=== PATIENT | male | born 1945 | race Caucasian/White ===

== ENCOUNTER 2019-05-10 06:41 | Day surgery (SDC) | payer MEDICARE, OTHER ==
[~2019-05-10] VITALS: Ht 172.7 cm; Wt 95.0 kg
[~2019-05-10 06:41] MED LIST: ALBU90OI6; ASPI81CH; BREO ELLIPTA 21 EACH; CLARITIN10 MG; DEXL60CA3; EPIN.3I; LORA10; TAMS.4ER
--- NOTE | 2019-05-10 07:51 | NUR ---
05/10/19 0751 Hayley Curiel 1 MISSED IV ANGELIA VALVE IN AND 1 MISSED IV BY KARLO VEIN BLEW RFA 1 GOOD IV BY KARLO IN AND PT TOW
== END 2019-05-10 08:39 | disposition home or self-care (01) ==
LOC: ORSCSDS 06:41
PROVIDERS: Internal Medicine Gastroenterology
PROC: 0DB58ZX Excision of Esophagus, Via Natural or Artificial Opening Endoscopic, Diagnostic (ICD-10-PCS; principal; 2019-05-10 08:00)
PROC: 0DB68ZX Excision of Stomach, Via Natural or Artificial Opening Endoscopic, Diagnostic (ICD-10-PCS; principal; 2019-05-10 08:00)
DX: K22.70 Barrett's esophagus without dysplasia (principal); K31.7 Polyp of stomach and duodenum; K29.70 Gastritis, unspecified, without bleeding; K20.8 Other esophagitis; E78.5 Hyperlipidemia, unspecified; K21.9 Gastro-esophageal reflux disease without esophagitis; J44.9 Chronic obstructive pulmonary disease, unspecified; E66.9 Obesity, unspecified; Z68.31 Body mass index [BMI] 31.0-31.9, adult; Z79.899 Other long term (current) drug therapy
CPT/HCPCS: 88305; 88342; J0461; J2250; J2405; J2704; J7120

== ENCOUNTER 2021-01-30 09:25 | Day surgery (SDC) | payer MEDICARE ==
[~2021-01-30] VITALS: Ht 172.7 cm; Wt 98.8 kg
[~2021-01-30 09:25] MED LIST changes: +ALBU90OI INH; +Allergy Relief10 M1 PO; +BREO ELLIPTA 21 EAC1 INH; +DEXL60CA3 PO; +EPIPEN0.3 MG/0.1 IM; +MONT10T PO; +TAMS.4ER PO
[2021-01-30] MEDS ORDERED: LORA1SY (10:17)
[2021-01-30] MEDS ORDERED: ATOR20 (10:18)
--- NOTE | 2021-01-30 11:46 | NUR ---
01/30/21 1146 Christine Edmondson 14ML NACL USED FOR POLYP REMOVAL IN DESCENDING COLON.
--- NOTE | 2021-01-30 13:00 | NUR ---
01/30/21 1300 Christine Edmondson PT. COUGHING POST COLONOSCOPY, LUNGS CLEAR.
== END 2021-01-30 12:25 | disposition home or self-care (01) ==
LOC: ORSCSDS 09:25
PROVIDERS: Internal Medicine Gastroenterology
PROC: 0DBH8ZX Excision of Cecum, Via Natural or Artificial Opening Endoscopic, Diagnostic (ICD-10-PCS; principal; 2021-01-30 11:00)
PROC: 0DBL8ZX Excision of Transverse Colon, Via Natural or Artificial Opening Endoscopic, Diagnostic (ICD-10-PCS; principal; 2021-01-30 11:00)
PROC: 0DBM8ZX Excision of Descending Colon, Via Natural or Artificial Opening Endoscopic, Diagnostic (ICD-10-PCS; principal; 2021-01-30 11:00)
DX: Z12.11 Encounter for screening for malignant neoplasm of colon (principal); Z86.010 Personal history of colon polyps; D12.0 Benign neoplasm of cecum; D12.3 Benign neoplasm of transverse colon; D12.4 Benign neoplasm of descending colon; K57.30 Diverticulosis of large intestine without perforation or abscess without bleeding; K64.8 Other hemorrhoids; K64.4 Residual hemorrhoidal skin tags; K21.9 Gastro-esophageal reflux disease without esophagitis; E78.5 Hyperlipidemia, unspecified; G47.33 Obstructive sleep apnea (adult) (pediatric); J45.909 Unspecified asthma, uncomplicated; Z79.899 Other long term (current) drug therapy
CPT/HCPCS: 88305; J2704; J7120

== ENCOUNTER 2021-06-24 12:31 | Emergency (ER) | payer MEDICARE ==
[~2021-06-24] VITALS: Ht 172.7 cm; Wt 99.8 kg
[~2021-06-24 12:31] MED LIST changes: +ATOR20; +LORA1SY
[2021-06-24] MEDS ORDERED: CEPH500 PO (17:09)
[2021-06-24] MEDS ORDERED: Norco 5-325 Ta1 EACH PO (17:09)
== END 2021-06-24 17:25 | disposition home or self-care (01) ==
LOC: ER 12:31
DX: S68.511A Complete traumatic transphalangeal amputation of right thumb, initial encounter (principal); Z23 Encounter for immunization; Z79.899 Other long term (current) drug therapy; Z91.030 Bee allergy status; W23.0XXA Caught, crushed, jammed, or pinched between moving objects, initial encounter
CPT/HCPCS: 11012; 36415; 73140; 90471; 90714; 96365-59; 96375-59; 99283-25; J0690; J1170

== ENCOUNTER → 2021-11-10 | Outpatient (CLI) | payer MEDICARE ==
[~2021-11-10] MED LIST changes: +CEPH500 PO; +Norco 5-325 Ta1 EACH PO
[2021-11-12 09:29] LABS: Stool Occult Bld Immuno 1 Negative (NEGATIVE)
== END | disposition home or self-care (01) ==
LOC: LAB SHORT 19:30
PROVIDERS: Internal Medicine
DX: D53.9 Nutritional anemia, unspecified (principal)
CPT/HCPCS: 82274

== ENCOUNTER → 2022-01-24 | Outpatient (CLI) | payer MEDICARE ==
[2022-01-25 12:29] LABS: Stool Occult Bld Immuno 1 Negative (NEGATIVE)
== END | disposition home or self-care (01) ==
LOC: LAB SHORT 16:19
PROVIDERS: Internal Medicine
DX: D53.9 Nutritional anemia, unspecified (principal)
CPT/HCPCS: 82274